=== PATIENT | female | born 1945 | race Caucasian/White ===

== ENCOUNTER 2016-11-17 10:37 | Outpatient (CLI) | payer OTHER ==
[2016-07-04 16:52] VITALS: O2SAT 94
== END 2016-11-17 10:38 | disposition home or self-care (01) | DRG 556 ==
LOC: CONVCARE 10:37
PROVIDERS: ATTEND Orthopaedic Surgery
DX: M79.672 Pain in left foot (principal); R20.0 Anesthesia of skin
CPT/HCPCS: 73630